=== PATIENT | female | born 1975 ===

== ENCOUNTER 2019-04-06 23:51 | Emergency (ER) | payer OTHER ==
[~2019-04-06] VITALS: Ht 160 cm; Wt 71.4 kg
[2019-04-06 23:54] VITALS: BP 131/82
--- NOTE | 2019-04-07 00:02 | NUR ---
PT IN GOWN IN [facility]; AWAITING ERP.
[2019-04-07] MEDS ORDERED: IBUPROFEN 200 MG TABLET ONE (00:22)
[2019-04-07] MEDS ORDERED: IBUPROFEN 600 MG TABLET PO ONE (00:30)
--- NOTE | 2019-04-07 01:35 | NUR ---
pt d/c with d/c summary and scripts. all questions answered. pt ambulates to registration desk with steady gait for d/c home. pt denies any other needs pertaining to this visit.
== END 2019-04-07 01:37 | disposition home or self-care (01) ==
LOC: ED 04-07 00:54
DX: J06.9 Acute upper respiratory infection, unspecified (principal)
CPT/HCPCS: 71046; 87081; 87880; 99284